=== PATIENT | male | born 1955 | race Caucasian/White ===

== ENCOUNTER 2017-05-14 08:52 | Emergency (ER) | payer SELFPAY ==
[2017-05-14 09:04] VITALS: BP 113/63
[2017-05-14] MEDS ORDERED: ALBUTEROL SULFATE 2.5 MG/0.5 ML VIAL.NEB IH ONE ×2 (09:06→09:14)
--- NOTE | 2017-05-14 09:09 | ERNOTE ---
Time Seen by Provider: 05/14/17 09:00 Stated Complaint: URI Presenting Symptoms:: cough Source: patient Exam Limitations: no limitations Immunizations: IMMUNIZATION HX Immunizations Up to Date Yes History of Influenza Vaccine No Hx Pneumococcal Vaccination No Allergies/Adverse Reactions: Allergies Penicillins Allergy (Severe, Verified 05/14/17 09:04) Anaphylaxis, URITICARIA Home Medications: HOME MEDICATIONS traMADol HCL [Ultram] 50 - 100 mg PO QID PRN 03/22/15 [Last Taken Unknown] Cyclobenzaprine HCl [Flexeril] 10 mg PO TID 04/05/15 [Last Taken Unknown] Albuterol Sulfate [Proair Hfa] 1 puff IH Q6H PRN 07/30/15 [Last Taken Unknown] Sildenafil Citrate [Viagra] 50 mg PO DAILY PRN 07/30/15 [Last Taken Unknown] Albuterol Sulfate 2.5 mg IH Q4H PRN #25 vial.neb 05/14/17 [Last Taken Unknown] Doxycycline Monohydrate 100 mg PO BID #20 tablet 05/14/17 [Last Taken Unknown] - History of Present Ilness Narrative: Patient has had URI symptoms for about three weeks, symptoms improve and then get worse again. He is mainly bothered by nasal congestion and cough with yellow sputum, shortness of breath with coughing. He has a history of COPD, doesn't use inhalers on a regular basis, smokes at least 1ppd Timing: getting worse Frequency/Possible Cause: Reports: occasional episodes, smoke exposure, unknown cause. Denies: illness exposure Modifying Factors - Worsens: Reports: activity Associated Symptoms: Reports: cough, shortness of breath, nasal congestion. Denies: chest pain/soreness, headache, sore throat, fever/chills Prior Treatment: Denies: recently seen, currently on antibiotics Review of Systems - Review of Systems Constitutional: Absent: recent illness, fever EYE: Absent: vision changes ENT: Present: nose congestion, nasal drainage Respiratory: Present: shortness of breath, cough Cardiology: Absent: chest pain Gastrointestinal/Abdominal: Absent: nausea, vomiting, abdominal pain Genitourinary: Present: no symptoms reported Musculoskeletal: Present: neck pain - chronic Neurological: Absent: headache, weakness, numbness - Patient's Past Medical History Patient History - Medical: Chronic Pain, Other Patient History - Cardiac/Respiratory: COPD, Hypertension, Hyperlipidemia Patient History - Cancer: No Hx of Cancer Patient History - Surgical Procedures: Colonoscopy, T & A Patient History - Other: None - Social History Living Situations: home Abuse History: No History of abuse Psych History: No pertinent hx Smoking Status: Current every day smoker Have you smoked in the past 12 months: Yes Do you dip or chew tobacco: No Alcohol Use: none Drug Use: none - Immunizations Immunizations Up to Date: Yes Hx Pneumococcal Vaccination: No History of Influenza Vaccine: No Physical Exam - Physical Exam General Appearance: Present: wd/wn, alert, no apparent distress Head Exam: Present: normal inspection Eye Exam: Normal inspection: bilateral Ears, Nose, Throat: Present: normal ENT inspection, abnormal TM (R) - dull, abnormal TM (L) - dull, normal pharynx Neck: Absent: lymphadenopathy (R), lymphadenopathy (L) Respiratory: Present: no respiratory distress, no accessory muscle use, lungs clear, decreased breath sounds, expiration (prolonged) Cardiovascular/Chest: Present: regular rate, rhythm, no murmur Extremity Exam: Present: no edema Neurological Exam: Present: alert, oriented, normal mood/affect Skin Exam: Present: normal color, warm/dry ED Progress - Vital Signs Patient's Vital Signs:: I have reviewed the patient's vital signs. Vital Signs: Vital Signs 05/14/17 09:00 Temperature 36.9 C Pulse Rate 59 L Respiratory 17 Rate Blood Pressure 113/63 O2 Sat by Pulse 96 Oximetry - Progress/Reassessment Chief Complaint: Upper Respiratory Symptoms Progress Note-Subjective: 05/14/17 09:43 feeling better after neb treatment discussed treatment for bronchitis ( has nebulizer) Departure Clinical Impression: COPD (chronic obstructive pulmonary disease) Qualifiers: COPD type: unspecified COPD Qualified Code(s): J44.9 - Chronic obstructive pulmonary disease, unspecified - Departure Disposition: Home self-care Condition: Good Instructions: Chronic Obstructive Pulmonary Disease Exacerbation, [id number] Referrals: Ronnie Hussein MD [Primary Care Provider] - Prescriptions: Albuterol Sulfate 2.5 mg IH Q4H PRN #25 vial.neb PRN Reason: Cough Doxycycline Monohydrate 100 mg PO BID #20 tablet
== END 2017-05-14 09:50 | disposition home or self-care (01) ==
LOC: ER 08:52
DX: F17.200 Nicotine dependence, unspecified, uncomplicated; J44.9 Chronic obstructive pulmonary disease, unspecified
CPT/HCPCS: 94640; 99284